=== PATIENT | male | born 1985 | race Caucasian/White ===

== ENCOUNTER 2017-11-06 14:59 | Emergency (ER) | payer OTHER ==
[~2017-11-06] VITALS: Ht 185.4 cm; Wt 108.0 kg
--- NOTE | 2017-11-06 15:14 | ED DYSPNEA/ASTHMA COMPLAINT ---
See Addendum History of Present Illness General Chief Complaint: Upper Respiratory Sx/Fever Stated Complaint: COUGH, FEVER, TROUBLE BREATHING Source: patient Exam Limitations: no limitations Vital Signs & Intake/Output Vital Signs & Intake/Output Vital Signs Date Time Temp Pulse Resp B/P B/P Pulse O2 O2 Flow FiO2 Mean Ox Delivery Rate 11/06 1708 Room Air 11/06 1708 92 18 124/80 97 Room Air 11/06 1506 97.6 115 18 153/92 98 Room Air Allergies Coded Allergies: NO KNOWN ALLERGIES (09/13/10) Triage Note: 32 YO MALE TO TRIAGE FOR EVAL OF NONPRODUCTIVE COUGH SINCE YESTEDAY. REPORTS FEVERS AT HOME. AFEBRILE AT THIS TIME. Triage Nurses Notes Reviewed? yes Onset: Abrupt Duration: day(s): (1-2), constant, continues in ED, getting worse Timing: single episode today Severity: mild, moderate Activities at Onset: none Prior Episodes/Possible Cause: no prior episodes Associated Symptoms: cough, weakness HPI: 32-year-old male history of diabetes present for evaluation of cough and shortness of breath. Patient reports symptoms started yesterday and have been getting worse. He reports that his cough is dry but he feels like he has stuff to get up but cannot. He also feels weak and has some body aches. He reports he had a low-grade temperature at home. Does not take any medicine for his symptoms. Denies any hemoptysis recent surgery recent trauma or lower extremity edema. No chest pain. No nausea vomiting or diarrhea no abdominal pain no rashes. (Lucas TRUJILLO,Filiberto) Reconcile Medications Albuterol Sulfate (Proair Hfa) 90 MCG HFA.AER.AD 2 PUF INH Q4-6 PRN PRN COUGH SOB Albuterol Sulfate (Proair Hfa) 90 MCG HFA.AER.AD 2 PUF INH Q4-6 PRN PRN COUGH Azithromycin (Zithromax) 250 MG TABLET 1 DP PO AD URI 2 the first day followed by 1 for days 2-5 Benzonatate 200 MG CAPSULE 1 CAP PO TIDPRN PRN COUGH (Santana PARRA, Leandro) Past History Travel History Traveled to [place] past 21 day No Medical History Any Pertinent Medical History? see below for history Neurological: NONE EENT: NONE Cardiovascular: NONE Respiratory: NONE Gastrointestinal: NONE Hepatic: NONE Renal: NONE Musculoskeletal: NONE Psychiatric: NONE Endocrine: diabetes Blood Disorders: NONE Cancer(s): NONE RN SCHOOL/Reproductive: NONE Surgical History Surgical History: non-contributory Psychosocial History What is your primary language Macanese Tobacco Use: Never used Family History Hx Contributory? No (Filiberto Jacobson) Review of Systems Review of Systems Constitutional: Reports: fever, malaise. EENTM: Reports: no symptoms. Respiratory: Reports: see HPI, cough, short of breath. Cardiovascular: Reports: no symptoms. GI: Reports: no symptoms. Genitourinary: Reports: no symptoms. Musculoskeletal: Reports: muscle pain, muscle stiffness. Skin: Reports: no symptoms. Neurological/Psychological: Reports: no symptoms. Hematologic/Endocrine: Reports: no symptoms. Immunologic/Allergic: Reports: no symptoms. All Other Systems: Reviewed and Negative (Filiberto Jacobson) Physical Exam Physical Exam General Appearance: well developed/nourished, no apparent distress, alert, awake Head: atraumatic, normal appearance Eyes: Bilateral: normal appearance, PERRL, EOMI. Ears, Nose, Throat: normal pharynx, normal ENT inspection, hearing grossly normal Neck: normal inspection, supple, full range of motion Respiratory: normal breath sounds, chest non-tender, no respiratory distress, lungs clear Cardiovascular: regular rate/rhythm, normal peripheral pulses Peripheral Pulses: 2+ radial (R), 2+ radial (L) Gastrointestinal: soft, non-tender Extremities: normal inspection, normal range of motion, no edema Neurologic/Psych: no motor/sensory deficits, awake, alert, oriented x 3, normal gait, normal mood/affect Skin: intact, normal color, warm/dry Lymphatic: no anterior cervical geovnany Core Measures ACS in differential dx? No CVA/TIA Diagnosis No Sepsis Present: No Sepsis Focused Exam Completed? No (Filiberto Jacobson) Progress Differential Diagnosis: asthma, AMI, bronchitis, CHF, COPD, pericarditis, pulmonary embolism, pneumonia, pneumothorax, unstable angina Plan of Care: Orders Procedure Date/time Status TROPONIN LEVEL 11/06 1507 Complete D-DIMER 11/06 1507 Complete COMPREHENSIVE METABOLIC PANEL 11/06 1507 Complete CBC WITHOUT DIFFERENTIAL 11/06 1507 Complete EKG 11/06 1507 Active Laboratory Tests 11/06/17 1539: Anion Gap 14, Estimated GFR > 60, BUN/Creatinine Ratio 21.4, Glucose 212 H, Calcium 9.8, Total Bilirubin 0.6, AST 67 H, ALT 66, Alkaline Phosphatase 76, Troponin I < 0.01, Total Protein 6.8, Albumin 4.3, Globulin 2.5, Albumin/ Globulin Ratio 1.7, D-Dimer High Sensitivty < 200, CBC w Diff NO MAN DIFF REQ, RBC 5.20, MCV 84.7, MCH 28.6, MCHC 33.8, RDW 14.9 H, MPV 8.4, Gran % 63.9, Lymphocytes % 26.6, Monocytes % 9.0, Eosinophils % 0, Basophils % 0.5, Absolute Granulocytes 2.1, Absolute Lymphocytes 0.9 L, Absolute Monocytes 0.3, Absolute Eosinophils 0, Absolute Basophils 0 Patient is here for evaluation of shortness of breath cough subjective fever and body aches. On exam his lung sounds are clear to auscultation bilaterally. He is tachycardic to the 1 teens. Labs EKG ordered. Labs and chest x-ray EKG are unremarkable. Patient will be treated for viral upper respiratory infection. He was given a prescription for benzonatate cough suppressant, pro-air inhaler. Advised Tylenol ibuprofen as needed for pain or fevers. Follow-up with the primary care doctor discussed return precautions patient agrees the plan. RX FOR Z-PACK GIVEN TO HOLD ONTO FOR USE ONLY IF SYMPTOMS DO NOT IMPROVME OR WORSEN OVER THE NEXT 48-72 HOURS. Diagnostic Imaging: Viewed by Me: Radiology Read. Discussed w/RAD: Radiology Read. CXR Impression: PATIENT: JILLIAN JESSICA PRESENT AGE : 32 PATIENT ACCOUNT NO: [id number] : [id number] LOCATION: [facility] ORDERING PHYSICIAN: Filiberto TRUJILLO SERVICE DATE: 11/06/17 EXAM TYPE: RAD - XRY- CHEST XRAY, TWO VIEWS EXAMINATION: XR CHEST CLINICAL INFORMATION: Pneumonia, cough and fever COMPARISON: None TECHNIQUE: 2 views of the chest were obtained. FINDINGS: No significant abnormality is noted involving the heart, lungs, mediastinum, bony thorax or soft tissues. IMPRESSION: Unremarkable examination. DICTATED BY: Edwardo Peñaloza MD DATE/TIME DICTATED:11/06/171618 DOUBLE END TENONER OPERATOR: SANTIAGO DATE/TIME TRANSCRIBED:11/06/171618 CONFIDENTIAL, DO NOT COPY WITHOUT APPROPRIATE AUTHORIZATION. <Electronically signed in Other Vendor System> SIGNED BY: Edwardo Peñaloza MD 11/06/17 9776 Initial ED EKG: normal sinus rhythm, left atrial abn Prior EKG: unchanged (Filiberto Jacobson) Departure Departure Disposition: HOME OR SELF CARE Condition: Stable Clinical Impression Primary Impression: URI (upper respiratory infection) Qualifiers: URI type: unspecified viral URI Qualified Code: J06.9 - Acute upper respiratory infection, unspecified Referrals: Abida Benson APRN (PCP/Family) Additional Instructions: Rest and drink plenty of fluids. Tylenol ibuprofen as needed for pain or fevers. Flonase for congestion benzoin and 8 and pro-air inhaler for cough. He can also use [id number] Mucinex for cough and congestion. If your symptoms do not improve or worsen over the next 48-72 hours start antibiotics for the full course otherwise your symptoms should go away on their own. Make a follow-up appointment with your primary care doctor to review all results of today's visit. Departure Forms: Customer Survey General Discharge Information Prescriptions: Current Visit Scripts Azithromycin (Zithromax) 1 DP PO AD #6 TAB 2 the first day followed by 1 for days 2-5 Benzonatate 1 CAP PO TIDPRN PRN COUGH #30 CAP Albuterol Sulfate (Proair Hfa) 2 PUF INH Q4-6 PRN PRN COUGH SOB #1 INHAL Albuterol Sulfate (Proair Hfa) 2 PUF INH Q4-6 PRN PRN COUGH #1 INHAL (Filiberto Jacobson) PA/CAR RESTORER Co-Sign Statement Statement: ED Attending supervision documentation- [] I saw and evaluated the patient. I have also reviewed all the pertinent lab results and diagnostic results. I agree with the findings and the plan of care as documented in the PA's/CAR RESTORER's documentation. [x] I have reviewed the ED Record and agree with the PA's/CAR RESTORER's documentation. [] Additions or exceptions (if any) to the PAs/CAR RESTORER's note and plan are summarized below: [] (Santana PARAR, Leandro) Critical Care Note Critical Care Note Critical Care Time: non-applicable (Filiberto Jacobson)
[2017-11-06 15:52] LABS: ABSOLUTE BASOPHIL COUNT 0 /CUMM (0.0-0.2); ABSOLUTE EOSINOPHIL COUNT 0 /CUMM (0.0-0.7); ABSOLUTE GRANULOCYTE CT 2.1 /CUMM (1.4-6.5); ABSOLUTE LYMPH COUNT 0.9 /CUMM (1.2-3.4); ABSOLUTE MONOCYTE COUNT 0.3 /CUMM (0.10-0.60); BASOPHIL % 0.5 % (0.0-2.0); EOSINOPHIL % 0 % (0-5); GRANULOCYTE % 63.9 % (42.2-75.2); HEMATOCRIT 44.1 % (42-52); MEAN CORPUSCULAR HGB 28.6 PG (27.0-31.0); MEAN CORPUSCULAR HGB CONC 33.8 G/DL (33.0-37.0); MEAN CORPUSCULAR VOLUME 84.7 FL (80.0-94.0); MEAN PLATELET VOLUME 8.4 FL (7.4-10.4); PLATELET COUNT 73 /CUMM (130-400); RBC DISTRIBUTION WIDTH 14.9 % (11.5-14.5); WHITE BLOOD CELL COUNT 3.2 /CUMM (4.8-10.8)
--- NOTE | 2017-11-06 16:23 | RADIOLOGY REPORT ---
EXAMINATION: XR CHEST CLINICAL INFORMATION: Pneumonia, cough and fever COMPARISON: None TECHNIQUE: 2 views of the chest were obtained. FINDINGS: No significant abnormality is noted involving the heart, lungs, mediastinum, bony thorax or soft tissues. IMPRESSION: Unremarkable examination.
[2017-11-06] MEDS ORDERED: ZITHROMAX250 M2 PO (16:40)
[2017-11-06] MEDS ORDERED: PROAIR HFA8.5 GM INH (16:40)
[2017-11-06] MEDS ORDERED: BENZONATATE200 M1 PO (16:40)
[2017-11-06 17:08] VITALS: BP 124/80
== END 2017-11-06 17:09 ==
LOC: ERH 14:59
PROVIDERS: Physician Assistant Medical
DX: N39.0 Urinary tract infection, site not specified (principal); E11.9 Type 2 diabetes mellitus without complications
CPT/HCPCS: 71046; 93005; 93010